=== PATIENT | male | born 1955 | race African-American/Black ===

== ENCOUNTER 2018-08-12 09:58 | Day surgery (SDC) | payer OTHER ==
[2018-08-12 10:26] LABS: BASO % 0.2 % (0.0-1.0); EOS % 0.1 % (0.0-3.0); HEMOGLOBIN 15.5 g/dl (13.5-17.5); IMMATURE GRANULOCYTE % 0.3 % (0-3.0); LYMPH % 6.5 % (24.0-44.0); MEAN CORPUSCULAR HEMOGLOBIN 30.6 pg (27.0-33.0); MEAN CORPUSCULAR HGB CONC 34.4 g/dl (32.0-36.5); MEAN CORPUSCULAR VOLUME 88.8 fl (80.0-96.0); MONO # 0.7 10^3/uL (0.0-0.8); MONO % 4.5 % (0.0-5.0); NEUTROPHILS % 88.4 % (36.0-66.0); PLATELET COUNT, AUTOMATED 416 10^3/uL (150-450); RED BLOOD COUNT 5.07 10^6/uL (4.30-6.10); RED CELL DISTRIBUTION WIDTH 13.4 % (11.5-14.5); WHITE BLOOD COUNT 14.7 10^3/uL (4.0-10.0)
[2018-08-12] MEDS: NS 1,000 ML IV (10:33)
[2018-08-12] MEDS: ONDANSETRON 4MG/2ML VIAL (J2405) IV (10:33)
[2018-08-12] MEDS: MORPHINE 4 MG/ML 1ML VIAL/SYRINGE (J2270) IV ×2 (10:34→20:12)
[2018-08-12 10:55] LABS: ALBUMIN 3.9 GM/DL (3.2-5.2); ALBUMIN/GLOBULIN RATIO 1.08 (1.00-1.93); ALKALINE PHOSPHATASE 57 U/L (45-117); ALT/SGPT 60 U/L (12-78); ANION GAP 9 MEQ/L (8-16); AST/SGOT 35 U/L (7-37); BILIRUBIN,DIRECT 0.3 MG/DL (0.0-0.2); BILIRUBIN,TOTAL 1.2 MG/DL (0.2-1.0); BLOOD UREA NITROGEN 19 MG/DL (7-18); CALCIUM LEVEL 9.3 MG/DL (8.8-10.2); CARBON DIOXIDE LEVEL 25 MEQ/L (21-32); CHLORIDE LEVEL 106 MEQ/L (98-107); CREATININE FOR GFR 0.87 MG/DL (0.70-1.30); GLOMERULAR FILTRATION RATE > 60.0 (>49); GLUCOSE, FASTING 127 MG/DL (70-100); LIPASE 70 U/L (73-393); SODIUM LEVEL 140 MEQ/L (136-145); TOTAL PROTEIN 7.5 GM/DL (6.4-8.2)
[2018-08-12 10:56] LABS: KETONE, URINE AUTO RFX NEGATIVE (NEGATIVE); LEUKOCYTE ESTERASE UR AUTO RFX NEGATIVE (NEGATIVE); MUCUS, URINE RFX SMALL (NEGATIVE); NITRITE, URINE AUTO RFX NEGATIVE (NEGATIVE); RBC, URINE AUTO RFX 8 /HPF (0-3); SQUAM EPITHELIAL CELL UR AURFX 0 /HPF (0-6); WBC, URINE AUTO RFX 2 /HPF (0-3)
[2018-08-12] MEDS ORDERED: ISOVUE-370 76% 100ML VIAL (Q9967) As Ordered (11:21)
[2018-08-12] MEDS: PIPERACILLIN/TAZOBACTAM SOD 3.375 GM in D5W MINI-BAG PLUS 50 ML IV ×2 (13:03→18:27)
[2018-08-12] MEDS ORDERED: BUPIVACAINE/EPIN 0.25% 30 ML VIAL As Ordered (13:43)
[2018-08-12] MEDS ORDERED: PROPOFOL 200 MG/20 ML VIAL As Ordered (13:51)
[2018-08-12] MEDS ORDERED: MIDAZOLAM INJ 2 MG/2 ML VIAL (J2250) As Ordered (13:51)
[2018-08-12] MEDS ORDERED: ROCURONIUM BROMIDE 50 MG/5 ML VIAL As Ordered (13:51)
[2018-08-12] MEDS ORDERED: LIDOCAINE 2% INJ 100 MG/5 ML SDV (FOR ANES.) As Ordered (13:51)
[2018-08-12] MEDS ORDERED: dexameTHASONE 4 MG/ML 1ML VIAL (J1100) As Ordered (13:52)
[2018-08-12] MEDS ORDERED: fentaNYL 100 MCG/2 ML INJECTION (J3010) As Ordered ×2 (13:52→15:06)
[2018-08-12] MEDS ORDERED: PHENYLephrine HCL 500 MCG/5 ML (100MCG/ML) SYRINGE (J2370) As Ordered ×2 (14:40→14:41)
[2018-08-12] MEDS ORDERED: ONDANSETRON 4MG/2ML VIAL (J2405) As Ordered (14:44)
[2018-08-12] MEDS ORDERED: KETOROLAC 60 MG/2 ML VIAL (J1885) As Ordered (14:44)
[2018-08-12] MEDS ORDERED: METOCLOPRAMIDE INJ 10MG/2ML VIAL (J2765) As Ordered (14:50)
[2018-08-12] MEDS ORDERED: ETOMIDATE INJ 20MG/10ML VIAL As Ordered (14:56)
[2018-08-12] MEDS ORDERED: NEOSTIGMINE 10 MG/10 ML VIAL (J2710) As Ordered (14:57)
[2018-08-12] MEDS ORDERED: GLYCOPYRROLATE INJ 0.2 MG/ML 2 ML VIAL As Ordered ×2 (14:57)
[2018-08-12] MEDS ORDERED: MORPHINE 4 MG/ML 1ML VIAL/SYRINGE (J2270) IV (15:15)
[2018-08-12] MEDS ORDERED: NORCO, ANEXSIA 5/325MG TABLET (HYDROcodone/ACETAMINOPHEN) PO ×2 (15:15)
[2018-08-12] MEDS ORDERED: ONDANSETRON 4MG/2ML VIAL (J2405) IV (15:15)
[2018-08-12] MEDS ORDERED: PROMETHAZINE INJ 25 MG/ML VIAL (J2550) IV (15:15)
[2018-08-12] MEDS ORDERED: METOCLOPRAMIDE INJ 10MG/2ML VIAL (J2765) IV (15:15)
[2018-08-12] MEDS ORDERED: fentaNYL 100 MCG/2 ML INJECTION (J3010) IV (15:45)
[2018-08-12] MEDS ORDERED: PERCOCET 5MG/325MG TAB PO (15:45)
[2018-08-12] MEDS: LR 1,000 ML IV ×2 (15:45→18:28)
[2018-08-12] MEDS ORDERED: KETOROLAC 30 MG/ML VIAL (J1885) IV ×2 (15:45→21:00)
[2018-08-12] MEDS: LISINOPRIL 10 MG TAB PO (17:02)
[2018-08-12] MEDS: SIMVASTATIN 20 MG TAB PO (20:12)
[2018-08-12] MEDS: DOCUSATE SODIUM 100 MG CAP PO (20:12)
[2018-08-12] MEDS: CARVedilol 6.25 MG TAB PO (20:15)
[2018-08-13] MEDS: LR 1,000 ML IV (01:28)
[2018-08-13] MEDS: PIPERACILLIN/TAZOBACTAM SOD 3.375 GM in D5W MINI-BAG PLUS 50 ML IV ×2 (01:37→06:43)
[2018-08-13] MEDS: DOCUSATE SODIUM 100 MG CAP PO (08:02)
[2018-08-13] MEDS: LISINOPRIL 10 MG TAB PO (08:03)
[2018-08-13] MEDS: CARVedilol 6.25 MG TAB PO (08:04)
[2018-08-13] MEDS ORDERED: IBUPROFEN 400 MG TAB PO (12:00)
[2018-08-13] MEDS ORDERED: ACETAMINOPHEN TAB 650MG DOSE (2X325MG) PO (12:00)
[2018-08-13] MEDS ORDERED: NORCO, ANEXSIA 5/325MG TABLET (HYDROcodone/ACETAMINOPHEN) PO ×3 (12:15→14:00)
== END 2018-08-13 13:00 | disposition home or self-care (01) ==
LOC: M SDC 08-13 13:00 → M ED 09:58 → M SDC 12:50 → M MSPAV 16:03
DX: K35.890 Other acute appendicitis without perforation or gangrene (principal)
CPT/HCPCS: 44970

== ENCOUNTER → 2022-11-03 | Outpatient (CLI) | payer OTHER ==
[~2022-11-03] MED LIST: CARV6.25 PO; HYDR-3715 PO; LISI10TA22 PO; SIMV20TA22 PO; VITMTA PO
== END ==
LOC: M SOG 10:29
PROVIDERS: ATTEND Orthopaedic Surgery
DX: M25.562 Pain in left knee (principal)

== ENCOUNTER → 2022-11-20 | Outpatient (CLI) | payer MEDICARE, OTHER | LOC: M RAD 11:02 | PROVIDERS: ATTEND Orthopaedic Surgery | DX: M25.562 Pain in left knee (principal); M22.8X2 Other disorders of patella, left knee; R93.6 Abnormal findings on diagnostic imaging of limbs ==

== ENCOUNTER → 2022-12-11 | Outpatient (REF) | payer MEDICARE, OTHER ==
[2022-12-11 17:39] LABS: BASO # 0.1 10^3/uL (0.0-0.2); BASO % 0.9 % (0.0-1.0); EOS # 0.3 10^3/uL (0.0-0.5); EOS % 4.2 % (0.0-3.0); HEMATOCRIT 47.3 % (42.0-52.0); HEMOGLOBIN 15.6 g/dl (13.5-17.5); LYMPH # 1.8 10^3/uL (1.5-5.0); MEAN CORPUSCULAR HEMOGLOBIN 30.4 pg (27.0-33.0); MONO # 0.6 10^3/uL (0.0-0.8); MONO % 8.6 % (2.0-8.0); NEUTROPHILS # 4.1 10^3/uL (1.5-8.5); NEUTROPHILS % 60.2 % (36.0-66.0); PLATELET COUNT, AUTOMATED 354 10^3/uL (150-450); RED BLOOD COUNT 5.14 10^6/uL (4.30-6.10); WHITE BLOOD COUNT 6.9 10^3/uL (4.0-10.0)
[2022-12-11 17:42] LABS: ALBUMIN 3.9 G/DL (3.2-5.2); ALKALINE PHOSPHATASE 53 U/L (46-116); ALT/SGPT 53 U/L (7.0-40); AST/SGOT 31 U/L (<34); BILIRUBIN,TOTAL 1.2 MG/DL (0.3-1.2); BLOOD UREA NITROGEN 12 MG/DL (9-23); CALCIUM LEVEL 9.5 MG/DL (8.3-10.6); CARBON DIOXIDE LEVEL 28 MMOL/L (20-31); CHLORIDE LEVEL 105 MMOL/L (98-107); CHOLESTEROL LEVEL 102 MG/DL (<200); CHOLESTEROL RISK RATIO 2.84 (<5); CREATININE FOR GFR 0.81 MG/DL (0.70-1.30); GLOMERULAR FILTRATION RATE > 60.0 (>49); GLUCOSE, FASTING 90 MG/DL (74-106); HDL CHOLESTEROL 35.8 MG/DL (>40); NON-HDL-C 66.2 MG/DL; POTASSIUM SERUM 4.4 MMOL/L (3.5-5.1); SODIUM LEVEL 140 MMOL/L (136-145); TOTAL PROTEIN 6.9 G/DL (5.7-8.2); TRIGLYCERIDES LEVEL 81 MG/DL (<150)
[2022-12-11 17:48] LABS: THYROID STIMULATING HORMONE 2.599 uIU/ML (0.55-4.78)
[2022-12-11 17:49] LABS: TOTAL 25(OH) VITAMIN D 30.6 NG/ML (20.0-100.0)
[2022-12-11 18:08] LABS: HEMOGLOBIN A1c 5.6 % (4.0-6.0)
[2022-12-13 23:08] LABS: PSA TOTAL 3.1 ng/mL (0.0-4.0)
== END ==
LOC: M LAB REF 16:20
PROVIDERS: ATTEND Nurse Practitioner Family
DX: Z13.228 Encounter for screening for other metabolic disorders (principal); R39.9 Unspecified symptoms and signs involving the genitourinary system; Z79.899 Other long term (current) drug therapy

== ENCOUNTER → 2023-01-05 | Outpatient (CLI) | payer MEDICARE, OTHER | LOC: M WHC 10:19 | PROVIDERS: ATTEND Otolaryngology | DX: K11.8 Other diseases of salivary glands (principal) ==

== ENCOUNTER 2023-02-02 07:35 | Day surgery (SDC) | payer MEDICARE, OTHER ==
[~2023-02-02] VITALS: Ht 172.7 cm; Wt 89.5 kg
[~2023-02-02 07:35] MED LIST changes: +ASPI-226 PO; +D 101000 PO; +FLOM0.4C39 PO; +NS 1,000 ML IV ONE; +ROSU20TA61 PO
[2023-02-02] MEDS ORDERED: LIDOCAINE 2% 100MG/5ML SDV (FOR ANES.) As Ordered ONE (08:43)
[2023-02-02] MEDS ORDERED: propofoL 200 MG/20 ML VIAL As Ordered ONE (08:43)
[2023-02-02 08:47] VITALS: TEMP 98.6
[2023-02-02 09:24] VITALS: BP 137/90; O2SAT 99
== END 2023-02-02 13:10 | disposition home or self-care (01) ==
LOC: M OPP 07:35
PROVIDERS: ATTEND Surgery
DX: Z12.11 Encounter for screening for malignant neoplasm of colon (principal); Z86.010 Personal history of colon polyps; Z80.0 Family history of malignant neoplasm of digestive organs; G47.33 Obstructive sleep apnea (adult) (pediatric); Z99.89 Dependence on other enabling machines and devices; Z79.02 Long term (current) use of antithrombotics/antiplatelets; Z79.82 Long term (current) use of aspirin; Z79.899 Other long term (current) drug therapy

== ENCOUNTER → 2023-03-16 | Outpatient (CLI) | payer OTHER ==
[~2023-03-16] MED LIST changes: -NS 1,000 ML IV ONE
== END ==
LOC: M PLALAB 12:40
PROVIDERS: ATTEND Orthopaedic Surgery
DX: Z47.89 Encounter for other orthopedic aftercare (principal)

== ENCOUNTER 2023-03-29 11:01 | Observation (INO) | payer MEDICARE, OTHER ==
[~2023-03-29] VITALS: Ht 172.7 cm; Wt 90.1 kg
[2023-03-29] VITALS (7 sets, daily range): BP systolic 115–147; BP diastolic 75–95; TEMP 97.5–97.9; O2SAT 91–94
[~2023-03-29 11:01] MED LIST changes: +C 50TAB PO; +CEPH500C PO; +FIBE625T PO; +LISI20TA33 PO; +OMEGCAP9 PO; +ROSU40TA4 PO
[2023-03-29] MEDS ORDERED: LR 1,000 ML IV SCH ×2 (12:00→15:40)
[2023-03-29] MEDS ORDERED: fentaNYL 100 MCG/2 ML INJECTION As Ordered ONE ×2 (13:15→14:01)
[2023-03-29] MEDS ORDERED: MIDAZOLAM INJ 2MG/2ML VIAL As Ordered ONE (13:15)
[2023-03-29] MEDS ORDERED: LIDOCAINE 2% 100MG/5ML SDV (FOR ANES.) As Ordered ONE (13:15)
[2023-03-29] MEDS ORDERED: SUCCINYLCHOLINE 100MG/5ML SYRINGE As Ordered ONE (13:15)
[2023-03-29] MEDS ORDERED: BACITRACIN OINTMENT 30GM TUBE As Ordered ONE (13:15)
[2023-03-29] MEDS ORDERED: propofoL 200 MG/20 ML VIAL As Ordered ONE (13:15)
[2023-03-29] MEDS ORDERED: ROCURONIUM BROMIDE 50MG/5ML VIAL As Ordered ONE (13:16)
[2023-03-29] MEDS ORDERED: ONDANSETRON 4MG 2ML VIAL As Ordered ONE (13:16)
[2023-03-29] MEDS ORDERED: ACETAMINOPHEN 1000MG 100ML IV BAG As Ordered ONE (13:22)
[2023-03-29] MEDS: LIDOCAINE W/EPINEPHRINE 1% 20ML VIAL As Ordered ONE ×2 (13:50→14:05)
[2023-03-29] MEDS ORDERED: VASOPRESSIN INJ 20UNITS/ML 1ML VIAL As Ordered ONE (14:25)
[2023-03-29] MEDS ORDERED: CLINDAMYCIN 900MG/6ML VIAL As Ordered ONE (15:05)
[2023-03-29] MEDS ORDERED: fentaNYL 100 MCG/2 ML INJECTION IV PRN (15:40)
[2023-03-29] MEDS ORDERED: ONDANSETRON 4MG 2ML VIAL IV PRN ×2 (15:40→17:55)
[2023-03-29] MEDS ORDERED: MOM 30ML SUSPENSION UDC PO PRN (15:45)
[2023-03-29] MEDS ORDERED: ACETAMINOPHEN TAB 650MG DOSE (2X325MG) PO PRN (15:45)
[2023-03-29] MEDS ORDERED: MAALOX 30 ML SUSP *UDC PO PRN (15:45)
[2023-03-29 16:53] LABS: BLOOD UREA NITROGEN 17 MG/DL (9-23); CALCIUM LEVEL 8.6 MG/DL (8.3-10.6); CARBON DIOXIDE LEVEL 27 MMOL/L (20-31); CHLORIDE LEVEL 108 MMOL/L (98-107); CREATININE FOR GFR 0.76 MG/DL (0.70-1.30); GLOMERULAR FILTRATION RATE > 60.0 (>49); GLUCOSE, FASTING 115 MG/DL (74-106); POTASSIUM SERUM 4.3 MMOL/L (3.5-5.1); SODIUM LEVEL 140 MMOL/L (136-145)
[2023-03-29] MEDS: oxyCODONE 5MG TAB PO PRN ×2 (16:53→17:48)
[2023-03-29 17:02] LABS: HEMATOCRIT 43.4 % (42.0-52.0); HEMOGLOBIN 14.4 g/dl (13.5-17.5); MEAN CORPUSCULAR HEMOGLOBIN 30.9 pg (27.0-33.0); MEAN CORPUSCULAR HGB CONC 33.2 g/dl (32.0-36.5); MEAN CORPUSCULAR VOLUME 93.1 fl (80.0-96.0); PLATELET COUNT, AUTOMATED 290 10^3/uL (150-450); RED BLOOD COUNT 4.66 10^6/uL (4.30-6.10); WHITE BLOOD COUNT 12.2 10^3/uL (4.0-10.0)
[2023-03-29] MEDS: LR 1,000 ML IV SCH (18:26)
[2023-03-29] MEDS: ANEXSIA, NORCO 7.5MG/325MG TABLET(HYDROCODONE/APAP) PO PRN ×2 (18:28→22:24)
[2023-03-29] MEDS ORDERED: ROSU20TA61 PO (18:41)
[2023-03-29] MEDS ORDERED: HOME MED LIST COMPLETE! XX SCH (18:45)
[2023-03-29] MEDS: CARVedilol 6.25 MG TAB PO SCH (21:37)
[2023-03-29] MEDS: DOCUSATE SODIUM 100MG CAPSULE PO SCH (21:38)
[2023-03-29] MEDS: OMEGA-3 1000MG CAPSULE PO SCH (21:38)
[2023-03-29] MEDS: CLINDAMYCIN 150MG CAPSULE PO SCH (21:38)
[2023-03-30 03:15] VITALS: BP 127/85; TEMP 97.9; O2SAT 97
[2023-03-30] MEDS: LR 1,000 ML IV SCH (03:33)
[2023-03-30] MEDS: CLINDAMYCIN 150MG CAPSULE PO SCH (05:30)
[2023-03-30 06:35] LABS: BASO % 0.2 % (0.0-1.0); EOS % 0.1 % (0.0-3.0); HEMATOCRIT 43.8 % (42.0-52.0); HEMOGLOBIN 14.8 g/dl (13.5-17.5); LYMPH # 0.9 10^3/uL (1.5-5.0); LYMPH % 6.2 % (24.0-44.0); MEAN CORPUSCULAR HEMOGLOBIN 30.9 pg (27.0-33.0); MEAN CORPUSCULAR HGB CONC 33.8 g/dl (32.0-36.5); MEAN CORPUSCULAR VOLUME 91.4 fl (80.0-96.0); MONO % 7.1 % (2.0-8.0); NEUTROPHILS % 85.8 % (36.0-66.0); PLATELET COUNT, AUTOMATED 305 10^3/uL (150-450); RED BLOOD COUNT 4.79 10^6/uL (4.30-6.10)
[2023-03-30 07:00] LABS: BLOOD UREA NITROGEN 17 MG/DL (9-23); CALCIUM LEVEL 8.9 MG/DL (8.3-10.6); CARBON DIOXIDE LEVEL 26 MMOL/L (20-31); CHLORIDE LEVEL 104 MMOL/L (98-107); CREATININE FOR GFR 0.67 MG/DL (0.70-1.30); GLOMERULAR FILTRATION RATE > 60.0 (>49); GLUCOSE, FASTING 112 MG/DL (74-106); MAGNESIUM LEVEL 1.9 MG/DL (1.8-2.4); POTASSIUM SERUM 4.2 MMOL/L (3.5-5.1); SODIUM LEVEL 138 MMOL/L (136-145)
[2023-03-30 07:15] VITALS: BP 115/74; TEMP 97.7; O2SAT 97
[2023-03-30] MEDS: ANEXSIA, NORCO 7.5MG/325MG TABLET(HYDROCODONE/APAP) PO PRN (08:06)
[2023-03-30] MEDS: OMEGA-3 1000MG CAPSULE PO SCH (08:06)
[2023-03-30 08:07] VITALS: BP 122/83
[2023-03-30] MEDS: DOCUSATE SODIUM 100MG CAPSULE PO SCH (08:07)
[2023-03-30] MEDS: CARVedilol 6.25 MG TAB PO SCH (08:07)
[2023-03-30] MEDS ORDERED: MULTIVITAMINS/MINERALS THERAP 1 TAB PO SCH (09:00)
[2023-03-30] MEDS ORDERED: FIBER-CON 625 MG TAB PO SCH (09:00)
[2023-03-30] MEDS ORDERED: VITAMIN D 1,000 INTERNATIONAL UNITS TABLET PO SCH (09:00)
[2023-03-30] MEDS ORDERED: ROSUVASTATIN 10 MG TAB (CRESTOR) PO SCH (09:00)
[2023-03-30] MEDS ORDERED: ASCORBIC ACID 500 MG TAB PO SCH (09:00)
[2023-03-30] MEDS ORDERED: ASPIRIN 81MG ENTERIC TABLET PO SCH (09:00)
[2023-03-30 10:00] VITALS: BP 128/87; TEMP 98.9; O2SAT 95
== END 2023-03-30 12:04 | disposition home or self-care (01) ==
LOC: M SDC 11:01 → M MSPAV 17:13
PROVIDERS: ADMIT Otolaryngology; ATTEND Otolaryngology
DX: K11.20 Sialoadenitis, unspecified (principal); I10 Essential (primary) hypertension; E78.5 Hyperlipidemia, unspecified; E11.9 Type 2 diabetes mellitus without complications; K21.9 Gastro-esophageal reflux disease without esophagitis; Z53.21 Procedure and treatment not carried out due to patient leaving prior to being seen by health care provider; Z79.82 Long term (current) use of aspirin; Z79.899 Other long term (current) drug therapy; G47.33 Obstructive sleep apnea (adult) (pediatric); N40.0 Benign prostatic hyperplasia without lower urinary tract symptoms
CPT/HCPCS: 36415; 42440; 80048; 83735; 85025; 85027; 88305; 88307; 96374; 96376; 99281; G0378; J0131; J0330; J0736; J1100; J2250; J2405; J2598; J3010

== ENCOUNTER 2023-03-30 19:19 | Emergency (ER) | payer MEDICARE, OTHER ==
[~2023-03-30] VITALS: Ht 172.7 cm; Wt 89.4 kg
[2023-03-30 19:20] VITALS: BP 141/86; TEMP 98.3; O2SAT 100
== END 2023-03-30 19:35 | disposition left against medical advice (07) ==
LOC: M ED 19:19
DX: Z53.21 Procedure and treatment not carried out due to patient leaving prior to being seen by health care provider (principal)

== ENCOUNTER → 2023-05-01 | Outpatient (CLI) | payer MEDICARE, OTHER ==
[2023-05-01 14:20] LABS: ALBUMIN 3.8 G/DL (3.2-5.2); ALKALINE PHOSPHATASE 58 U/L (46-116); ALT/SGPT 48 U/L (7.0-40); AST/SGOT 21 U/L (<34); BILIRUBIN,TOTAL 1.9 MG/DL (0.3-1.2); BLOOD UREA NITROGEN 12 MG/DL (9-23); CALCIUM LEVEL 9.1 MG/DL (8.3-10.6); CARBON DIOXIDE LEVEL 27 MMOL/L (20-31); CHLORIDE LEVEL 105 MMOL/L (98-107); CHOLESTEROL LEVEL 113 MG/DL (<200); CREATININE FOR GFR 0.68 MG/DL (0.70-1.30); GLOMERULAR FILTRATION RATE > 60.0 (>49); GLUCOSE, FASTING 96 MG/DL (74-106); HDL CHOLESTEROL 38.9 MG/DL (>40); LDL CHOLESTEROL 61.3 MG/DL (<100); NON-HDL-C 74.1 MG/DL; POTASSIUM SERUM 3.9 MMOL/L (3.5-5.1); SODIUM LEVEL 140 MMOL/L (136-145); TOTAL PROTEIN 6.8 G/DL (5.7-8.2); TRIGLYCERIDES LEVEL 64 MG/DL (<150)
[2023-05-01 14:57] LABS: HEMOGLOBIN A1c 6.1 % (4.0-6.0)
== END ==
LOC: M PLALAB 09:58
PROVIDERS: ATTEND Nurse Practitioner Family
DX: E78.5 Hyperlipidemia, unspecified (principal); R73.01 Impaired fasting glucose

== ENCOUNTER → 2023-05-29 | Outpatient (CLI) | payer MEDICARE, OTHER | LOC: M RAD 13:16 | PROVIDERS: ATTEND Internal Medicine | DX: S81.022A Laceration with foreign body, left knee, initial encounter (principal) ==

== ENCOUNTER → 2024-01-03 | Outpatient (REF) | payer OTHER, MEDICARE ==
[~2024-01-03] MED LIST changes: -ROSU40TA4 PO; +ROSU40TA63 PO
[2024-01-03 18:04] LABS: BASO # 0.1 10^3/uL (0.0-0.2); BASO % 1.3 % (0.0-1.0); EOS # 0.3 10^3/uL (0.0-0.5); HEMATOCRIT 45.2 % (42.0-52.0); HEMOGLOBIN 15.6 g/dl (13.5-17.5); LYMPH # 1.6 10^3/uL (1.5-5.0); LYMPH % 26.6 % (24.0-44.0); MEAN CORPUSCULAR HEMOGLOBIN 31.6 pg (27.0-33.0); MEAN CORPUSCULAR HGB CONC 34.5 g/dl (32.0-36.5); MEAN CORPUSCULAR VOLUME 91.5 fl (80.0-96.0); MONO # 0.5 10^3/uL (0.0-0.8); MONO % 8.6 % (2.0-8.0); NEUTROPHILS # 3.5 10^3/uL (1.5-8.5); NEUTROPHILS % 58.2 % (36.0-66.0); PLATELET COUNT, AUTOMATED 307 10^3/uL (150-450); RED BLOOD COUNT 4.94 10^6/uL (4.30-6.10)
[2024-01-03 18:17] LABS: ALBUMIN 3.9 G/DL (3.2-5.2); ALKALINE PHOSPHATASE 58 U/L (46-116); ALT/SGPT 55 U/L (7.0-40); AST/SGOT 32 U/L (<34); BLOOD UREA NITROGEN 15 MG/DL (9-23); CALCIUM LEVEL 9.4 MG/DL (8.3-10.6); CARBON DIOXIDE LEVEL 27 MMOL/L (20-31); CHLORIDE LEVEL 104 MMOL/L (98-107); CHOLESTEROL LEVEL 101 MG/DL (<200); CHOLESTEROL RISK RATIO 2.71 (<5); CREATININE FOR GFR 0.76 MG/DL (0.70-1.30); GLOMERULAR FILTRATION RATE > 60.0 (>49); GLUCOSE, FASTING 111 MG/DL (74-106); HDL CHOLESTEROL 37.2 MG/DL (>40); LDL CHOLESTEROL 40.4 MG/DL (<100); NON-HDL-C 63.8 MG/DL; POTASSIUM SERUM 4.3 MMOL/L (3.5-5.1); SODIUM LEVEL 138 MMOL/L (136-145); THYROID STIMULATING HORMONE 1.873 uIU/ML (0.55-4.78); TOTAL 25(OH) VITAMIN D 30.7 NG/ML (20.0-100.0); TOTAL PROTEIN 6.7 G/DL (5.7-8.2); TRIGLYCERIDES LEVEL 117 MG/DL (<150)
[2024-01-03 18:22] LABS: HEMOGLOBIN A1c 5.3 % (4.0-6.0)
== END ==
LOC: M LAB REF 16:32
PROVIDERS: ATTEND Nurse Practitioner Family
DX: E66.3 Overweight (principal); E55.9 Vitamin D deficiency, unspecified; Z79.899 Other long term (current) drug therapy

== ENCOUNTER → 2024-05-08 | Outpatient (CLI) | payer MEDICARE, OTHER ==
[~2024-05-08] MED LIST changes: -ROSU40TA63 PO; +ROSU40TA81 PO
[2024-05-08 13:47] LABS: BASO # 0.1 10^3/uL (0.0-0.2); BASO % 0.8 % (0.0-1.0); EOS # 0.2 10^3/uL (0.0-0.5); EOS % 3.8 % (0.0-3.0); HEMATOCRIT 44.5 % (42.0-52.0); LYMPH # 1.4 10^3/uL (1.5-5.0); LYMPH % 23.1 % (24.0-44.0); MEAN CORPUSCULAR HEMOGLOBIN 31.1 pg (27.0-33.0); MEAN CORPUSCULAR HGB CONC 33.7 g/dl (32.0-36.5); MEAN CORPUSCULAR VOLUME 92.1 fl (80.0-96.0); MONO # 0.6 10^3/uL (0.0-0.8); MONO % 9.6 % (2.0-8.0); NEUTROPHILS # 3.8 10^3/uL (1.5-8.5); NEUTROPHILS % 62.4 % (36.0-66.0); PLATELET COUNT, AUTOMATED 294 10^3/uL (150-450); RED BLOOD COUNT 4.83 10^6/uL (4.30-6.10)
[2024-05-08 13:57] LABS: ALKALINE PHOSPHATASE 55 U/L (46-116); ALT/SGPT 39 U/L (7.0-40); AST/SGOT 24 U/L (<34); BILIRUBIN,TOTAL 2.9 MG/DL (0.3-1.2); BLOOD UREA NITROGEN 24 MG/DL (9-23); CALCIUM LEVEL 9.6 MG/DL (8.3-10.6); CARBON DIOXIDE LEVEL 29 MMOL/L (20-31); CHLORIDE LEVEL 108 MMOL/L (98-107); CHOLESTEROL LEVEL 92 MG/DL (<200); CHOLESTEROL RISK RATIO 2.97 (<5); CREATININE FOR GFR 0.74 MG/DL (0.70-1.30); GLOMERULAR FILTRATION RATE > 60.0 (>49); GLUCOSE, FASTING 95 MG/DL (74-106); HDL CHOLESTEROL 30.9 MG/DL (>40); LDL CHOLESTEROL 47.5 MG/DL (<100); NON-HDL-C 61.1 MG/DL; POTASSIUM SERUM 4.2 MMOL/L (3.5-5.1); SODIUM LEVEL 140 MMOL/L (136-145); TOTAL 25(OH) VITAMIN D 35.4 NG/ML (20.0-100.0); TRIGLYCERIDES LEVEL 68 MG/DL (<150)
[2024-05-08 14:22] LABS: HEMOGLOBIN A1c 5.5 % (4.0-6.0)
== END ==
LOC: M PLALAB 09:44
PROVIDERS: ATTEND Nurse Practitioner Family
DX: E55.9 Vitamin D deficiency, unspecified (principal); I10 Essential (primary) hypertension; E78.5 Hyperlipidemia, unspecified; R73.01 Impaired fasting glucose

== ENCOUNTER → 2024-07-04 | Outpatient (CLI) | payer MEDICARE, OTHER ==
[~2024-07-04] MED LIST changes: -ROSU20TA61 PO; +ROSU20TA86 PO
[2024-07-04 14:15] LABS: ALBUMIN 3.9 G/DL (3.2-5.2); BLOOD UREA NITROGEN 19 MG/DL (9-23); CALCIUM LEVEL 9.7 MG/DL (8.3-10.6); CARBON DIOXIDE LEVEL 29 MMOL/L (20-31); CHLORIDE LEVEL 106 MMOL/L (98-107); CREATININE FOR GFR 0.76 MG/DL (0.70-1.30); GLOMERULAR FILTRATION RATE > 60.0 (>49); GLUCOSE, FASTING 93 MG/DL (74-106); PHOSPHORUS LEVEL 3.6 MG/DL (2.4-5.1); SODIUM LEVEL 140 MMOL/L (136-145)
== END ==
LOC: M PLALAB 10:01
PROVIDERS: ATTEND Registered Nurse
DX: I11.9 Hypertensive heart disease without heart failure (principal)

== ENCOUNTER → 2024-07-07 | Outpatient (CLI) | payer MEDICARE, OTHER | LOC: M RAD 07:08 | PROVIDERS: ATTEND Internal Medicine | DX: M47.897 Other spondylosis, lumbosacral region (principal) ==

== ENCOUNTER → 2024-09-04 | Outpatient (CLI) | payer MEDICARE, OTHER ==
[2024-09-04 15:13] LABS: ALBUMIN 3.8 G/DL (3.2-5.2); BLOOD UREA NITROGEN 20 MG/DL (9-23); CALCIUM LEVEL 9.4 MG/DL (8.3-10.6); CARBON DIOXIDE LEVEL 29 MMOL/L (20-31); CHLORIDE LEVEL 105 MMOL/L (98-107); CREATININE FOR GFR 0.82 MG/DL (0.70-1.30); GLOMERULAR FILTRATION RATE > 60.0 (>49); GLUCOSE, FASTING 89 MG/DL (74-106); PHOSPHORUS LEVEL 3.7 MG/DL (2.4-5.1); POTASSIUM SERUM 4.3 MMOL/L (3.5-5.1); SODIUM LEVEL 142 MMOL/L (136-145)
== END ==
LOC: M PLALAB 12:46
PROVIDERS: ATTEND Registered Nurse
DX: I11.9 Hypertensive heart disease without heart failure (principal)

== ENCOUNTER → 2025-05-22 | Outpatient (CLI) | payer MEDICARE, OTHER ==
[~2025-05-22] MED LIST changes: -FLOM0.4C39 PO; +TAMS-18 PO
== END ==
LOC: M PLAIMG 13:26
PROVIDERS: ATTEND Registered Nurse
DX: I77.810 Thoracic aortic ectasia (principal)

== ENCOUNTER → 2025-05-27 | Outpatient (CLI) | payer MEDICARE, OTHER | LOC: M RAD 07:24 | PROVIDERS: ATTEND Registered Nurse | DX: I11.9 Hypertensive heart disease without heart failure (principal); I77.810 Thoracic aortic ectasia ==